=== PATIENT | male | born 1970 | race Caucasian/White ===

== ENCOUNTER 2019-01-23 07:45 | Day surgery (SDC) | payer MEDICAID, SELFPAY ==
[2019-01-23] VITALS (8 sets, daily range): BP systolic 107–142; BP diastolic 67–83; PULSE 60–74; RESP 16–20; TEMP 36.5–36.6; O2SAT 98–100; BMI 46.2
== END 2019-01-23 09:13 | disposition home or self-care (01) ==
LOC: OR 07:47
PROVIDERS: PCP Family Medicine; Visit Provider Ophthalmology
PROC: (CPT 66984; principal; 2019-01-23 08:00)
DX: H26.9 Unspecified cataract (principal)
CPT/HCPCS: 66984; V2632

== ENCOUNTER 2025-01-28 10:59 | Emergency (ER) | payer MEDICAID, SELFPAY ==
--- OUTSIDE RECORDS SUMMARY | 2025-01-08 14:45 | XMS_ITS | Encounter Summary ---
Author Organization [place] [address] Care Team Providers Care Visual Merchandiser Name Role Phone MelissaDaja Teri SANTIAGO Primary Care Provider [phone] Keya Parra LCSW Unavailable Unavailabl e Reason for Referral * MRI/CAT Scan (Routine) - Pending Review Specialty Diagnoses / Procedures Referred By Contac t Referred To Contact Radiology Diagnoses Smoking greater than [address] LUNG CANCER SCREENING LOW DOSE Dieudonne Loyd MD [address] [place] [address] [place] [address] Phone: tel: fax: Referral ID Status Reason Start Date Expiration Date V isits Requested Visits Authorized [id number] Pending Review 01/08/2025 04/10/2026 1 1 Reason for Visit * Reason Comments Depression Hand Pain Burning / tingling i n hands Ingrown Toenail Nasal Congestion Runny nose constantl y Encounter Details Date Type Department Care Team (Late st Contact Info) Description 01/08/2025 2:45 PM EDT Office Visit [facility] [place] [address] [place] [id number] Dieudonne Loyd MD [address] [place] [address] [place] [address] Current moderate episode of major depressive disorder without prior episode (HCC) (Primary Dx); Smoking greater than 20 pack years; Cigarette nicotine dependence with other nicotine-induced disorder Social History Tobacco Use Types Packs/Day Years Used Date Smoking Tobacco: Every Day Cigarettes 0.5 42.1 Started: 12/20/1982 Passive Smoke Exposure: Current Smokeless Tobacco: Never Comments:On Chantix currentl y, down to 0.25 pack/day Alcohol Use Standard Drinks/Week Comments No 0 (1 standard drink = 0.6 oz pur e alcohol) PHQ-2 Answer Date Recorded PHQ-2 Total Score 0 08/16/2023 Sexually Active Control Partners Comments Yes Female Sex and Gender Information Value Date Recorded Sex Assigned at Not on file Legal Sex Male 2:42 AM EDT Gender Identity Not on file Sexual Orientation Not on file 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 on file Not on file Not on file documented as of this encounter Last Filed Vital Signs Vital Sign Reading Time Taken Comments Blood Pressure 142/90 01/08/2025 3:03 PM EDT Pulse 93 01/08/2025 3:03 PM EDT Temperature 36.8 C (98.3 F) 01/08/2025 3:03 PM EDT Respiratory Rate 16 01/08/2025 3:03 PM EDT Oxygen Saturation 99% 01/08/2025 3:03 PM EDT Inhaled Oxygen Concentration - - Weight 49.6 kg (109 lb 6.4 oz) 01/08/2025 3:03 P M EDT Height 167.6 cm (5' 6 ) 01/08/2025 3:03 PM EDT Body Mass Index 17.66 01/08/2025 3:03 PM EDT documented in this encounter Functional Status * Is the person deaf or does he/she have serious difficulty hearing? Answer Date of Assessment Author No 07/05/2018 2:19 PM Alexandra Oh MA * Is the person blind or does he/she have serious difficulty seeing even when wearing glasses? Answer Date of Assessment Author No 07/05/2018 2:19 PM Alexandra Oh MA * Does this person have serious difficulty walking or climbing stairs? Answer Date of Assessment Author No 07/05/2018 2:19 PM Alexandra Oh MA * Does this person have difficulty dressing or bathing? Answer Date of Assessment Author No 07/05/2018 2:19 PM Alexandra Oh MA * Because of a physical, mental or emotional condition, does this person have difficulty doing errands alone such as visiting a doctor's office or shopping? Answer Date of Assessment Author No 07/05/2018 2:19 PM Alexandra Oh MA documented as of this encounter Mental Status * Because of a physical, mental or emotional condition, does this person have serious difficulty concentrating, remembering or making decisions? Answer Entry Date Author No 07/05/2018 2:19 PM Alexandra Oh MA documented in this encounter Ordered Prescriptions Prescription Sig Dispense Quantity Refills Last Filled Start Date End Date varenicline tartrate (CHANTIX) 1 mg Oral TabletIndications: Cigarette nicotine dependence with other nicotine-induced disorder Take 1 Tablet by mouth 2 times daily for 90 days. 60 Tablet 2 01/08/2025 04/08/2025 Varenicline 0.5 mg (11)- 1 mg (42) Oral Tablets, Dose PackIndications:Ci garette nicotine dependence with other nicotine-induced disorder Take 0.5 mg PO daily for 3 days, then 0.5 mg PO BID for 4 days, and then 1 mg PO BID 53 Tablet 01/08/2025 escitalopram oxalate (LEXAPRO) 10 mg Oral TabletIndications: Current moderate episode of major depressive disorder without prior episode (HCC) Take 1 Tablet by mouth daily. 90 Tablet 2 01/08/2025 documented in this encounter Progress Notes * Dieudonne Loyd MD - 01/08/2025 2:45 PM EDT Assessment & Plan 1. Depression. - History of using Seroquel, discontinued due to adverse effects including grogginess and impaired functioning. - Reports anxiety and nervousness, exacerbated by the loss of his brother and mother. - Prescription for Lexapro will be issued to manage both anxiety and depression. - List of local counseling resources will be provided to facilitate therapy sessions; social workerwill be consulted for availability. 2. Smoking cessation. - Expressed desire to quit smoking; previously used Chantix successfully. - Two prescriptions for Chantix will be sent to pharmacy: one for the starter pack and another for the continuing pack. - Discussed the importance of smoking cessation and previous success with Chantix. 3. Lung cancer screening. - Due to smoking history, an annual lung cancer screening CT is recommended. - Order for the CT scan will be placed, and contact information for scheduling the appointment willbe provided. - Emphasized the importance of annual screening based on smoking history. Assessment & Plan Current moderate episode of major depressive disorder without prior episode (HCC) Orders: escitalopram oxalate (LEXAPRO) 10 mg Oral Tablet; Take 1 Tablet by mouth daily. Smoking greater than 20 pack years Orders: CT LUNG CANCER SCREENING LOW DOSE; Future Cigarette nicotine dependence with other nicotine-induced disorder Orders: Varenicline 0.5 mg (11)- 1 mg (42) Oral Tablets, Dose Pack; Take 0.5 mg PO daily for 3 days, then 0.5 mg PO BID for 4 days, and then 1 mg PO BID varenicline tartrate (CHANTIX) 1 mg Oral Tablet; Take 1 Tablet by mouth 2 times daily for 90 days. [place] TOBACCO USE CESSATION INTERMEDIATE 3-10 MINUTES Tobacco Use Cessation Counseling I spent 4 minutes discussing smoking cessation including long-term health risks, symptomatology association, steps to decreasing and eliminating tobacco use. Patient agreed to start chantix today to aid in smoking cessation. Follow up cessation at next visit No follow-ups on file. Subjective Alli Mayer is a 54 y.o. male Chief Complaint Patient presents with Depression Hand Pain Burning / tingling in hands Ingrown Toenail Nasal Congestion Runny nose constantly History of Present Illness The patient is a 54-year-old male who presents today for evaluation of depression and smoking cessation. He reports experiencing symptoms of both anxiety and depression, which have been exacerbated by therecent loss of his brother a few years ago. Additionally, he mentions the passing of his mother approximately ten years ago, which has contributed to his emotional distress. He has not previously engaged in any form of counseling but expresses interest in doing so. He has consulted with a counselorat this facility, who unfortunately does not have an available appointment until 01/29/2025. He hasno history of using other antidepressants such as Zoloft, Lexapro, or Effexor. He was previously prescribed Seroquel, initially at a dosage of 50 mg for 2 to 3 doses, which was subsequently increasedto 100 mg. However, he discontinued the medication due to its sedative effects, which resulted in him being late for work on three occasions within a week. He is currently seeking assistance to quit smoking. He has previously used Chantix, which was effective in helping him quit smoking, but he has since experienced a recurrence of drug use and is now committed to achieving long-term cessation. SOCIAL HISTORY The patient admits to smoking. Review of Systems Constitutional: Negative for activity change, chills, fatigue and fever. Psychiatric/Behavioral: Positive for decreased concentration and dysphoric mood. The patient is nervous/anxious. Objective Blood pressure (!) 142/90, pulse 93, temperature 98.3 ??F (36.8 ??C), temperature source Tympanic, resp. rate 16, height 5' 6 (1.676 m), weight 109 lb 6.4 oz (49.6 kg), SpO2 99%. Body mass index is 17.66 kg/m??. Physical Exam Physical Exam Vitals reviewed. Constitutional: General: He is not in acute distress. Appearance: He is well-developed. He is not diaphoretic. HENT: Head: Normocephalic and atraumatic. Eyes: Pupils: Pupils are equal, round, and reactive to light. Cardiovascular: Rate and Rhythm: Normal rate and regular rhythm. Pulmonary: Effort: Pulmonary effort is normal. Breath sounds: Normal breath sounds. No wheezing. Skin: Findings: No rash. Neurological: Mental Status: He is alert and oriented to person, place, and time. Psychiatric: Attention and Perception: Attention normal. Mood and Affect: Mood is anxious. Affect is flat and tearful. Behavior: Behavior normal. Thought Content: Thought content normal. Judgment: Judgment normal. Judgment is not impulsive. Results The provider educated the patient (or legal enrollment representative) on the use of the ambient listening artificial intelligence tool, emoquo. They were informed that this AI tool processes the conversation to generate a clinical note with the expected benefit of improved accuracy while achieving an improved encounter experience for the patient and provider.?The provider explained that the medical information captured by the AI tool including, but not limited to, diagnoses and treatment plan would be protected in accordance with applicable privacy laws and that all diagnoses and treatment decisions would be made by the provider. The provider explained that the note generated will be reviewed bythe provider for accuracy to minimize potential errors.? The patient was given an opportunity to ask questions and opt out of proceeding with the use of the AI tool. After being informed of such information, the patient (or legal enrollment representative), and each individual in attendance with the patient, verbally consented to the use of the AI tool. documented in this encounter Miscellaneous Notes * Patient Instructions - Dieudonne Loyd MD - 01/08/2025 2:45 PM EDT Mental Health and Counseling: The following organizations provide Mental Health Services. If focused on one population, specifiedbelow: [facility] [place] (counseling for all ages, accepts Medicare): -[address], [place], [place] David [facility] Illness [facility] (Counseling): - [address], [place], [place] [facility] (Children???s counseling): - [address] [facility] [address], [place] [address] documented in this encounter Plan of Treatment Scheduled Orders Name Type Priority Associated Diagnoses Orde r Schedule CT LUNG CANCER SCREENING LOW DOSE Imaging Routine Smoking greater than 20 pack years 1 Occurrences starting 01/08/2025 until 04/10/2026 WA TOBACCO USE CESSATION INTERMEDIATE 3-10 MINUTES WA Charge Routine Cigarette nicotine dependence with other nicotine-induced disorder Ordered: 01/08/2025 documented as of this encounter Goals Goal Patient Goal Type Associated Problems Recent Progress Patient-Stated? Author Maintain a healthy diet, exercise regularly and maintain an ideal body weight General No Charleen Riley RMA Stay Tobacco Free Lifestyle No Charleen Riley RMA documented as of this encounter Visit Diagnoses Diagnosis Current moderate episode of major depressive disorder without prior episode (HCC)- Primary Smoking greater than 20 pack years Tobacco use disorder Cigarette nicotine dependence with other nicotine-induced disorder documented in this encounter Discontinued Medications Medication Sig Discontinue Reason Start Date End Da te QUEtiapine XR (SEROQUEL) 50 mg Oral Tablet Sustained Release 24 hrIndications:Modera te episode of recurrent major depressive disorder (HCC) TAKE 1 TAB BY MOUTH NIGHTLY FOR 3 DAYS THEN TAKE 2TABS NIGHTLY FOR 27DAYS.MUST BE TAKEN 3-4HOURS BEFORE BEDTIME Cancelled by 05/03/2024 01/08/2025 Varenicline 0.5 mg (11)- 1 mg (42) Oral Tablets, Dose PackIndications:Pers onal history of nicotine dependence TAKE DIRECTED PER PACKAGE INSTRUCTIONS DELETE- Entered in Error 09/20/2023 01/08/2025 documented as of this encounter Care Teams Visual Merchandiser Relationship Specialty Start Date End Date Daja Torres [place] [address] PCP - General Family Medicine 10/24/23 Keya Parra LCSW [facility] [employer] 01/08/25 documented as of this encounter
--- NOTE | 2025-01-28 11:15 | ED_ITS ---
<Statement entered by Randy Díaz MD - 01/28/25 15:35> I was consulted by the KARLA, and we discussed the complexity of the problems being addressed. I approved the treatment and management plan for this patient's care in the emergency department, thus performing a substantive portion of the medical decision making. Randy Díaz MD Discharge Plan Disposition Patient Disposition: Home, Self-Care Condition: Good Prescriptions Prescriptions: New methocarbamol 750 mg tablet 750 mg PO Q6H PRN (Reason: muscle spasm) Qty: 20 0RF lidocaine 5 % adhesive patch,medicated 1 patch topical DAILY Qty: 30 0RF Rx Instructions: leave on most painful area for up to 12 hrs No Action cilostazol 100 MG tablet 100 mg PO DAILY aspirin 81 MG tablet,delayed release (DR/EC) 81 mg PO DAILY rosuvastatin 20 MG tablet 20 mg PO DAILY varenicline tartrate 1 MG tablet 1 mg PO DAILY rivaroxaban 2.5 MG tablet 2.5 mg PO DAILY Referrals Follow up/Referrals: Provider,Referral, [Primary Care Provider, Medical] - See instructions Activity Restrictions/Add. Instructions Additional Instructions/Restrictions: As we discussed your workup today was negative for any pneumothorax or pneumonia. I have sent in meloxicam and a Lidoderm patch to your pharmacy as it helps with your back pain. If you have persistent new or worsening signs or symptoms follow-up with your PCP return to the ER as needed. Clinical Impressions Clinical Impression: Acute thoracic back pain Qualifiers: Back pain laterality: left Qualified Code(s): M54.6 - Pain in thoracic spine Print Language Print Language: Samoan Discharge ED Provider: Randy Díaz General Adult HPI General Chief complaint: PAIN Stated complaint: lower back pain cough Time Seen by Provider: 01/28/25 11:14 History of Present Illness HPI narrative: Patient presents for left-sided thoracic back pain. Patient states symptoms began 3 days ago and has gotten progressively worse. Patient also reports a cough however that is not new and does not make his back pain worse. There is no position of comfort there is no aggravating or relieving factors he denies any trauma or injury. He does have a history of pneumonia which is why he came to the emergency department as he was concerned that this is what it was as it felt similar to previous ones. He denies any fever shortness of breath hemoptysis hematochezia melena hematemesis hematuria. Related Data Home Medications ?Medication ?Instructions ?Recorded ?Confirmed aspirin 81 mg tablet,delayed 81 mg PO DAILY thinner 01/23/19 release cilostazol 100 mg tablet 100 mg PO DAILY blood clots 01/23/19 01/23/19 rivaroxaban 2.5 mg tablet 2.5 mg PO DAILY thinner 01/1301/23/19 rosuvastatin 20 mg tablet 20 mg PO DAILY Cholesterol 0 01/23/19 01/23/19 varenicline tartrate 1 mg tablet 1 mg PO DAILY smoking sessitation 01/23/19 01/23/19 Previous Rx's ?Medication ?Instructions ?Recorded lidocaine 5 % topical patch 1 patch topical DAILY #30 ea 01/28/25 methocarbamol 750 mg tablet 750 mg PO Q6H PRN muscle s pasm #20 01/28/25 tabs Allergies Allergy/AdvReac Type Severity Reaction Status Date / Time No Known Allergies Allergy Verified 01/23/19 07:56 [facility] Disclaimer: The information contained in this section may have been updated after the patient was seen, as this information can be updated by other users. Social History Smoking Status: Current every day smoker alcohol intake: never current occupational status: employed Travel in the last 8 weeks?: None caffeine: No ROS Obtained: Yes Systems reviewed as appropriate & no additional complaints except as documented Physical Exam General General appearance: alert and in no apparent distress Respiratory Respiratory exam: Present normal lung sounds bilaterally Cardiovascular Cardiovascular exam: Present regular rate Neurological Exam Neurological exam: Present alert and oriented X3 Medical Decision Making Medical Records Medical records reviewed: Yes I reviewed the patient's medical records. Screening: Per USPSTF and CDC recommendations, given the prevalence of disease in our region, it is our hospital?s policy to screen for HIV and viral Hepatitis for all patients aged 18 and over and those with ongoing risk factors. Lester Inquiry Pt receiving controlled substance: No Vital Signs: 01/28/25 11:17 01/28/25 11:30 01/28/25 12:00 Temperature 97.8 F Temperature Source Oral Pulse Rate 65 75 Pulse Rate [Right] 82 Respiratory Rate 17 Blood Pressure 159/97 H 115/67 Blood Pressure [Right Arm] 146/92 H Blood Pressure Mean 108 Blood Pressure Mean [Right Arm] 110 Blood Pressure Source [Right Arm] Automatic Cuff Blood Pressure Position [Right Arm] Supine 02 Sat by Pulse Oximetry 100 100 100 Oxygen Delivery Method Room Air Lab Data Lab results reviewed: Yes I reviewed the patient's lab results. Lab Results 01/28/25 11:32: WBC 8.5, RBC 4.47 L, Hgb 14.6, Hct 42.2, MCV 94.4 H, MCH 32.7 H, MCHC 34.6, RDW 12.1, Plt Count 343, MPV 9.0, Neut % (Auto) 67.3, Lymph % (Auto) 19.8, Beckham % (Auto) 10.9 H, Eos % (Auto) 1.1, Baso % (Auto) 0.5, Neut # (Auto) 5.7, Lymph # (Auto) 1.7, Beckham # (Auto) 0.9, Eos # (Auto) 0.1, Baso # (Auto) 0.0, PT 11.9, INR 1.08, Sodium 135 L, Potassium 4.6, Chloride 101, Carbon Dioxide 33 H, Anion Gap 5.6, BUN 23 H, Creatinine 0.90, Estimated Creat Clear 72, Estimated GFR 87, Est GFR ( Amer) 106, Glucose 81, Calcium 9.2, Total Bilirubin 0.2, AST 32, ALT 22, Alkaline Phosphatase 112, Total Protein 7.2, Albumin 4.3, Globulin 2.9, Albumin/Globulin Ratio 1.5, Procalcitonin 0.057 01/28/25 11:32 01/28/25 11:32 Orders (Tests/Meds): ED MEDICATIONS Discontinued Medications Generic Name Dose Route Start Last Admin Trade Name Elena PRN Reason Stop Dose Admin Acetaminophen 1,000 mg 01/28/25 11:19 01/28/25 11:48 Acetaminophen 500mg Tab PO 01/28/25 11:20 1,000 mg ONCE ONE Administration Sodium Chloride 1,000 mls @ 999 mls/hr 01/28/25 11:19 01/28/25 11:48 Sod Chlor 0.9% 1000ml Bag IV 01/28/25 12:19 999 mls/hr .Q1H1M ONE Administration Iopamidol 70 ml 01/28/25 11:39 01/28/25 11:41 Iopamidol-370 (76%);100ml Bottle IV 01/28/25 11:40 70 ml ONCE ONE Administration Ketorolac Tromethamine 15 mg 01/28/25 11:19 01/28/25 11:47 Ketorolac 30mg/Ml Vial IV 01/28/25 11:20 15 mg ONCE ONE Administration Lidocaine 1 each 01/28/25 11:19 01/28/25 11:47 Lidocaine 5% Transdermal Patch TD 01/28/25 11:20 1 each ONCE ONE Administration Methocarbamol 500 mg 01/28/25 11:19 01/28/25 11:48 Methocarbamol 500mg Tablet PO 01/28/25 11:20 500 mg ONCE ONE Administration Sodium Chloride 50 ml 01/28/25 11:39 01/28/25 11:40 0.9 % Sodium Chloride 50 Ml Vial IV 01/28/25 11:40 50 ml ONCE ONE Administration Sodium Chloride 10 ml 01/28/25 11:39 01/28/25 11:41 Sodium Chloride 0.9% 10ml Syr (Rad Only) IV 01/28/25 11:40 10 ml ONCE ONE Administration ORDERS Category Date Time Status CT angio chest PE protocol Stat Cat Scan 01/28/25 11:19 Completed CBC w/Auto Diff [Complete Blood Count Auto Diff] Stat Lab 01/28/25 11:32 Completed CMP [Comprehensive Metabolic Panel] Stat Lab 01/28/25 11:32 Completed HIV Combo Stat Lab 01/28/25 11:32 Received Hepatitis C Ab Qual. W/ RFX Stat Lab 01/28/25 11:32 Received INR [Prothrombin Time INR] Stat Lab 01/28/25 11:32 Completed Procalcitonin Stat Lab 01/28/25 11:32 Completed Medical Decision Narrative: In summary patient is a 84-year-old male who presents to the emergency department for evaluation of left thoracic back pain. Patient is hemodynamically stable with normal sinus rhythm with a rate of 82 on the bedside monitor breathing 17 times minute satting 100% on room air upon arrival, afebrile at 97.8. Physical exam is remarkable for clear breath sounds with no adventitious sounds or increased breathing, no anterior chest wall tenderness to palpation, patient has no midline spine tenderness however he has point tender in the left mid thoracic back just inferior to the scapula without evidence of contusions abrasions deformities.. Differential diagnosis includes muscle spasm versus rib fracture versus pneumonia versus pneumothorax etc. Initial workup will be conducted with hematologic labs CT PE protocol. Initial interventions include Tylenol Toradol meloxicam and Lidoderm patch. 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 Please see final read for formal interpretation.. Upon repeat evaluation patient had complete resolution of his back pain after initial intervention. Given this patient is appropriate for discharge with prescription for meloxicam and Robaxin and strict return precautions. Critical Care Critical Care Time Critical Care Time: No
[2025-01-28 11:17] VITALS: BP 146/92; PULSE 82; RESP 17; TEMP 36.6; O2SAT 100; BMI 19.7
--- NOTE | 2025-01-28 11:19 | CT_ITS ---
FINAL REPORT TECHNIQUE: The patient was injected with IV contrast. Axial images were obtained through the chest in a PE protocol. 3-D reconstruction images were also performed. Individualized dose reduction techniques using automated exposure control or adjustment of the MA and/or KV according to patient's size were employed. CLINICAL HISTORY: Acute thoracic back pain COMPARISON: none FINDINGS: Mediastinal vasculature is adequately opacified. No pulmonary artery filling defects are identified to suggest PE. There is no aortic dissection. There is no significant mediastinal mass or adenopathy. The heart size is normal. There is no pericardial or pleural effusion. Limited images of the upper abdomen are unremarkable. Biapical bulla formation is noted. There is a linear opacity in the right lung apex favored to represent parenchymal scarring, well seen on image 28 of series 5. IMPRESSION: No pulmonary embolus or dissection. Bulla formation. Scarring at the right lung apex. Reviewed, Interpreted and Dictated by Bob Woodall MD Transcribed by Rosmery Barton Authenticated and [facility]
--- OUTSIDE RECORDS SUMMARY | 2025-01-28 11:20 | XMS_ITS | Encounter Summary ---
Author Organization [place] [address] Care Team Providers Care Performance Reporter Name Role Phone Daja Torres DO Primary Care Provider [phone] Keya Parra LCSW Unavailable Unavailabl e Reason for Visit * Reason Onset Date Comments Appointment Needed 01/08/2025 Appt requeste d ZOË solares/ Keya Parra for counseling. Please call to sched Encounter Details Date Type Department Care Team (Late st Contact Info) Description 01/08/2025 Telephone [facility] [address] [place] [address] Daja Torres, [address] [place] [phone] Appointment Needed (Appt requested ZOË solares/ Keya Parra for counseling. Please call to sched) Social History Tobacco Use Types Packs/Day Years [...] on file documented as of this encounter Functional Status * Is the [...] Alexandra Oh MA documented in this encounter Miscellaneous Notes * Telephone Encounter - Sarah Garcia - 01/08/2025 10:07 AM EDT Select the most appropriate reason for this telephone message: Appointment Needed Appointment Requested By: Patient Provider Preference: Abdi Parra Type of Appt Needed: Office Visit Detailed Reason for Appt: Pt asking to set up appt with Keya- asking to do this ZOË Requested Timeframe: Today/ tomorrow Reason Scheduling Assistance is Needed: Call Center not permitted to schedule Return Method of Communication: Phone Call Additional Information: Pt asking to have an appt scheduled with a counselor ZOË- didn't want to specify reason for appt. - Call center did attempt to transfer call, but unable to connect with office. Sending message HP since pt was very upset documented in this encounter Plan of Treatment Not on file documented as of this encounter Goals Goal Patient Goal Type Associated Problems Recent Progress Patient-Stated? Author Maintain a healthy diet, exercise regularly and maintain an ideal body weight General No Charleen Riley RMA Stay Tobacco Free Lifestyle No Charleen Riley RMA documented as of this encounter Visit Diagnoses Not on filedocumented in this encounter Care Teams Performance Reporter Relationship Specialty Start Date End Date Daja Torres DO [address] [place] [id number] PCP - General Family Medicine 10/24/23 Keya Parra LCSW Security Delivery Specialist 01/08/25 documented as of this encounter
--- OUTSIDE RECORDS SUMMARY | 2025-01-28 11:20 | XMS_ITS | Encounter Summary ---
Author Organization [place] [address] Care Team Providers Care Licensed Pesticide Applicator Name Role Phone Daja Torres Primary Care Provider + [phone] Keya Parra LCSW Unavailable Unavailabl e Reason for Visit * Reason Comments CM- In office handoff Encounter Details Date Type Department Care Team (Late st Contact Info) Description 01/08/2025 Patient Outreach [facility] [address] [place] [address] Keya Parra LCSW CM- In office handoff Social History Tobacco Use Types Packs/Day Years [...] Alexandra Oh MA documented in this encounter Progress Notes * Keya Parra LCSW - 01/08/2025 3:20 PM EDT PEDIATRIC DERMATOLOGIST met with patient while in office this date for warm hand off from Dieudonne Loyd. PEDIATRIC DERMATOLOGIST introduced social welfare research worker program. Patient was provided with contact information. Patient was provided with resources regarding community therapist. Patient will contact PEDIATRIC DERMATOLOGIST if further assistance is needed. If no contact is made within one month, PEDIATRIC DERMATOLOGIST will close patient referral due to no contact. Length of Encounter: 10 - 15 minutes documented in this encounter Plan of Treatment [...] on filedocumented in this encounter Care Teams Licensed Pesticide Applicator Relationship Specialty Start Date End Date Daja Torres DO [address] [place] [address] PCP - General Family Medicine 10/24/23 Keya Parra LCSW Heat Curer 01/08/25 documented as of this encounter
--- OUTSIDE RECORDS SUMMARY | 2025-01-28 11:20 | XMS_ITS | Encounter Summary ---
Author Organization [place] [address] Care Team Providers Care Rn Clinical Resource Name Role Phone Daja Torres Primary Care Provider [phone] Reason for Visit * Reason Comments Medication Refill Encounter Details Date Type Department Care Team (Late st Contact Info) Description 11/21/2024 Refill [facility] [address] [place] [address] Nimisha Coulter MD Medication Refill Social History Tobacco Use Types Packs/Day Years [...] encounter Miscellaneous Notes * Telephone Encounter - Danita Villeda CPhT - 11/21/2024 3:11 PM EDT rosuvastatin - Refill request deferred to the office: Medication discontinued or inactive on the medication list documented in this encounter Plan of Treatment Not on file documented as of this encounter Goals Goal Patient Goal Type Associated Problems Recent Progress Patient-Stated? 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
--- OUTSIDE RECORDS SUMMARY | 2025-01-28 11:20 | XMS_ITS | Clinical Summary ---
Author Organization [facility] Address [address] [facility] [place] [address] Phone Care Team Providers Care Nurse Companion Name Role Phone Daja Torres Primary Care Provider + [phone] Keya Parra REBAR WORKER Unavailable Unavailabl e Allergies No known active allergies Medications montelukast (SINGULAIR) 10 mg Oral TabletIndication s:Eustachian tube dysfunction, bilateral Take 1 Tablet by mouth nightly for 360 days. 90 Tablet 3 4 02/02/20 25 Active Additional Information Patient not taking.Reported on 01/08/2025 XARELTO 20 mg Oral TabletIndication s:Atherosclerosi s of s[place]qual[place] artery of both lower extremities with intermittent claudication,PAD (peripheral artery disease),Coronar y artery disease involving [place] coronary artery of [place]qualmie heart with angina pectoris,PFO (patent foramen ovale),Chronic anticoagulation, History of embolism TAKE 1 TABLET BY MOUTH EVERY DAY 30 Tablet 5 Active Additional Information Patient not taking.Reported on 01/08/2025 escitalopram oxalate (LEXAPRO) 10 mg Oral TabletIndication s:Current moderate episode of major depressive disorder without prior episode (HCC) Take 1 Tablet by mouth daily. 90 Tablet 2 5 Active Varenicline 0.5 mg (11)- 1 mg (42) Oral Tablets, Dose PackIndications: Cigarette nicotine dependence with other nicotine-induced disorder Take 0.5 mg PO daily for 3 days, then 0.5 mg PO BID for 4 days, and then 1 mg PO BID 53 Tablet 5 Active varenicline tartrate (CHANTIX) 1 mg Oral TabletIndication s:Cigarette nicotine dependence with other nicotine-induced disorder Take 1 Tablet by mouth 2 times daily for 90 days. 60 Tablet 2 5 04/08/20 25 Active Active Problems Patient Care Coordination No te Formatting of this note migh t be different from the original. Needs prior authorization for xarelto every May Problem Noted Date Diagnosed Date PFO (patent foramen ovale) 08/16/2023 Assessment & Plan (08/16/2023 12:42 PM EST): No intervention. On xarelto. Had bubble echo 01/14/16 Chronic anticoagulation 08/16/2023 Coronary artery disease invo lving snoqualmie coronary artery of snoqualmie heart with angina pectoris 08/16/2023 Assessment & Plan (08/16/2023 12:40 PM EST): On xarelto. Was on statin but got confused on whether he was supposed to be taking or not. Will restart with crestor Hasn't seen cardiology since 2018 - recommend follow up Vitamin D deficiency 08/16/2023 Moderate episode of recurrent major depressive d isorder 08/16/2023 Assessment & Plan (08/16/2023 12:44 PM EST): Doesn't feel like prozac is helping depression. Seems to calm him down too much. Not sleeping well. No SI/HI/AVH. Will start seroquel. Pt is blaming weight loss on grief and depression since he just isn't interested in eating although his appetite is good when he does eat. Abdominal aortic atherosclerosis 08/16/2023 Overview (08/16/2023): No aneurysm 2015 Assessment & Plan (08/16/2023 12:46 PM EST): Asymptomatic at this time. On xarelto. BP is good. Restart statin. Discussed diet and exercise. Cachexia 08/16/2023 Assessment & Plan (08/16/2023 12:54 PM EST): Pt blames on depression. But also has CAD, PAD,and is a smoker. No pulmonary symptoms but is due for lung screen. Follow up in 1 month. Has history of glucose intolerance so will also check for diabetes and hyperthyroidism. HPV (human papilloma virus) anogenital infection 10/19/2017 Mixed hyperlipidemia 12/30/2016 Assessment & Plan (08/16/2023 12:41 PM EST): On xarelto. Was on statin but got confused on whether he was supposed to be taking or not. Will restart with crestor. Discussed diet since he is eating a lot of red meat. Seasonal allergic rhinitis 12/30/2016 Right to left cardiac shunt 10/11/2016 COPD (chronic obstructive pulmonary disease) 03/2016 Assessment & Plan (08/16/2023 12:38 PM EST): Currently stable. Recommend smoking cessation. Would like to restart chantix Atherosclerosis of snoqualmie ar ilda of extremity with intermittent claudication 02/03/2016 Assessment & Plan (08/16/2023 12:39 PM EST): Stable. On xarelto. Was on statin but got confused on whether he was supposed to be taking or not. Will restart with crestor PAD (peripheral artery disease) 01/27/2016 Assessment & Plan (08/16/2023 12:39 PM EST): No open wounds today on legs. On xarelto. Was on statin but got confused on whether he was supposed to be taking or not. 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 Continue exercises. Glucose intolerance (impaire d glucose tolerance) 11/30/2016 11/19/2023 Tobacco dependence 06/27/2016 Loculated empyema 04/02/2016 08/16/2023 Empyema lung 03/30/2016 08/16/2023 Mediastinal adenopathy 03/30/201608/16 Pneumonia of right lower lob e due to infectious organism 03/17/2016 08/16/2023 COPD exacerbation 03/17/2016 11/19/2023 Sepsis due to pneumonia 03/17/201601/2024 Pleural effusion, right 09/2023 Encounters Date Type Department Care Team Description 01/08/2025 2:45 PM EDT Office Visit [address] [place] [address] Dieudonne Loyd MD Current moderate episode of major depressive disorder without prior episode (HCC) (Primary Dx); Smoking greater than 20 pack years; Cigarette nicotine dependence with other nicotine-induced disorder 01/08/2025 Patient Outreach [address] [place] [address] Keya Parra LCSW CM- In office handoff 01/08/2025 Patient Outreach [address] [place] [address] Keya Parra LCSW SW- Telephonic Outreach; CM- Telephonic Outreach 01/08/[address] [place] [address] Daja Torres, DO Appointment Needed (Appt requested ZOË w/ Keya Parra for counseling. Please call to sched) 12/27/[address] [place] [address] Daja Torres, DO Medication Refill 11/21/[address] [place] [address] Nimisha Coulter MD Medication Refill 11/21/[address] [place] [address] Daja Torres, DO Medication Refill from Last 3 Months Immunizations Immunization Administration Dates Next Due Influenza Vaccine Quadrivalent PF 08/16/2023 Tdap 05/08/2010 Surgical History Surgery Date Site/Laterality Comments THROMBECTOMY 01/13/2016 - 01/14/2016 Left embolectomy left popliteal, balloon angioplasty left poplietal, diagnostic arteriography left leg, recantilization of right common and external illiac arteries with snare technique. 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 Arthritis feet Clotting disorder s/p thrombecto my left leg Pleural effusion, right Mediastinal adenopathy 03/30/2016 Loculated empyema (HCC) 04/02/2016 Sepsis due to pneumonia (HCC) 03/17/2016 Family History Medical History Relation Name Comments Aneurysm Brother Coronary Art Dis Brother Cancer Father Heart Attack Mother Anesth Problems Neg Hx Relation Name Status Comments Brother Father Mother Social History Tobacco Use Types Packs/Day Years Used Date Smoking Tobacco: Every Day Cigarettes 0.5 42.1 Started: 12/20/1982 Passive Smoke Exposure: Current Smokeless Tobacco: Never Tobacco Cessation:Ready to Q uit: No; Counseling Given: No Comments:On Chantix currently, down to 0.25 pack/day Alcohol Use Standard [...] file Not on file Not on file Obstetrics History Last Filed Vital Signs Vital Sign Reading [...] Mass Index 17.66 01/08/2025 3:03 PM EDT Plan of Treatment Health Maintenance Due Date Last Done Comments Hepatitis B Vaccine (1 of 3 - 19+ 3-dose series) 02/23/1987 Pneumococcal Vaccine 50+ (1 of 2 - PCV) 02/23/1987 Cologuard 02/23/2013 Colon Cancer Screening 02/23/2013 Colonoscopy 02/23/2013 FIT 02/23/2013 Sigmoidoscopy 02/23/2013 Virtual Colonography 02/23/2013 Zoster (1 of 2) 02/23/2018 Low Dose Lung Cancer Screening 07/05/2019 07/05/2018, 06/07/2016, 04/01/2016, Additional history exists DTaP/TDaP/Td (2 - Td or Tdap) 05/08/2020 05/08/2010 COVID-19 Vaccine ( season) 2024 Annual Wellness Exam 08/16/2024 08/16/2023 Influenza Vaccine (Season Ended) 2025 08/16/2023, 06/14/2017 (Postponed), 04/22/2016 (Declined) Meningococcal B Vaccine Aged Out No l onger eligible based on patient's age to complete this topic Goals Goal Patient Goal Type Associated Problems Recent Progress Patient-Stated? Author Maintain a healthy diet, exercise regularly and maintain an ideal body weight General No Charleen Riley RMA Stay Tobacco Free Lifestyle No Charleen Riley RMA Medical Devices Implanted Type Area Distribution Sales Manager Device Identifier Shelf Expiration Date Model / Serial / Lot Stent Epic Vascular 6fr 8 X 80 X 75-09/17/2016 Implanted:Qty: 1 on 09/17/2016 by Avelino Vargas MD Arterial [employer] [id number] / / [id number] Procedures Procedure Name Priority Date/Time Associated Diagnosis Comments CT CHEST W CONTRAST STAT 07/05/2018 6 :39 PM EST TOBIN (dyspnea on exertion) Tobacco use Weight loss from Last 3 Months or Most Recently Relevant to Health Maintenance Results * CT CHEST W CONTRAST (07/05/2018 6:39 PM EST) Anatomical Region Laterality Modality Chest Computed Tomogra phy 07/05/2018 6:39 PM EST Impressions 07/05/2018 6:53 PM EST No acute intrathoracic process. Diffuse scattered emphysematous lung changes. Narrative 07/05/2018 6:[address] CHEST WITH CONTRAST, 07/05/2018 6:39 PM CLINICAL HISTORY: R06.09-Other forms of dciwvnw-HWM-04-CM Z72.0-Tobacco uvk-LMY-81-CM R63.4-Abnormal weight gkkg-CPF-46-CM COMPARISON: Prior comparison noncontrast chest CT study, 06/07/2016. PROCEDURE COMMENTS: Multi detector volumetric CT scanning of the chest. Multiplanar reconstructions per protocol. 75 mL Isovue 370 given. Automated exposure control for dose reduction was used. CTDIvol: 3.9 mGy. DLP: 145 mGy-cm. FINDINGS: Normal caliber of the thoracic aorta. No visualized cardiac enlargement. No focal intrathoracic lymphadenopathy. The lungs are clear. No dominant lung mass or pleural effusion. Bilateral scattered emphysematous bulla noted with greatest involvement of the right apical region. No visualized pneumothorax. Stable chronic left upper lobe increased subpleural lung markings. The visualized bony chest wall structures are intact. Unremarkable visualized upper abdominal structures. Procedure Note Eulalio Ortiz DO - 07/05/2018 CT CHEST WITH CONTRAST, 07/05/2018 6:39 PM CLINICAL HISTORY: R06.09-Other forms of bmhbrwa-MNY-94-CM Z72.0-Tobacco wkr-EOR-32-CM R63.4-Abnormal weight sffo-FUI-26-CM COMPARISON: Prior comparison noncontrast chest CT study, 06/07/2016. PROCEDURE COMMENTS: Multi detector volumetric CT scanning of the chest. Multiplanar reconstructions per protocol. 75 mL Isovue 370 given.Automated exposure control for dose reduction was used. CTDIvol: 3.9 mGy. DLP: 145mGy-cm. FINDINGS: Normal caliber of the thoracic aorta. No visualized cardiac enlargement.No focal intrathoracic lymphadenopathy. The lungs are clear. No dominant lungmass or pleural effusion. Bilateral scattered emphysematous bulla noted withgreatest involvement of the right apical region. No visualized pneumothorax.Stable chronic left upper lobe increased subpleural lung markings. The visualizedbony chest wall structures are intact. Unremarkable visualized upperabdominal structures. IMPRESSION: No acute intrathoracic process. Diffuse scattered emphysematous lung changes. us Nimisha Tan MD IM CT ORDERABLES F inal Result from Last 3 Months or Most Recently Relevant to Health Maintenance Insurance PLAN BY [employer] Advance Directives For more information, please contact: [phone] * Full Code (Latest Code Status on File) Date Activated Date Inactivated Comments 03/18/2016 12:40 PM 04/05/2016 7:45 PM * Full Code Date Activated Date Inactivated Comments 01/15/2016 4:17 PM 01/16/2016 8:30 PM Care Teams Nurse Companion Relationship Specialty Start Date End Date Daja Torres DO [address] [place] [address] PCP - General Family Medicine 10/24/23 Keya Parra LCSW Hogshead Wrecker 01/08/25
--- OUTSIDE RECORDS SUMMARY | 2025-01-28 11:20 | XMS_ITS | Encounter Summary ---
Author Organization [address] [address] Care Team Providers Care Interior Wall Assembler Name Role Phone Daja Torres DO Primary Care Provider [phone] Reason for Visit * Reason Comments Medication Refill Encounter Details Date Type Department Care Team (Late st Contact Info) Description 12/27/2024 Refill [facility] [address] [place] [address] Daja Torres DO [address] [place] [address] Medication Refill Social History Tobacco Use Types [...] Refills Last Filled Start Date End Date XARELTO 20 mg Oral TabletIndications:A therosclerosis of nikolai artery of both lower extremities with intermittent claudication,PAD (peripheral artery disease),Coronary artery disease involving nikolai coronary artery of nikolai heart with angina pectoris,PFO (patent foramen ovale),Chronic anticoagulation,His tory of embolism TAKE 1 TABLET BY MOUTH EVERY DAY 30 Tablet 12/28/2024 documented in this encounter Plan of Treatment Not on file documented as of this encounter Goals Goal Patient Goal Type Associated Problems Recent Progress Patient-Stated? Author Maintain a healthy diet, exercise regularly and maintain an ideal body weight General No Charleen Riley RMA Stay Tobacco Free Lifestyle No Charleen Riley RMA documented as of this encounter Visit Diagnoses Diagnosis Atherosclerosis of nikolai artery of both lower extremities with intermittent claudication Atherosclerosis of nikolai arteries of the extremities with intermittent claudication PAD (peripheral artery disease) Unspecified disorders of arteries and arterioles Coronary artery disease involving nikolai coronary artery of nikolai heart with angina pectoris PFO (patent foramen ovale) Ostium secundum type atrial septal defect Chronic anticoagulation Encounter for long-term (current) use of anticoagulants History of paradoxical embolism documented in this encounter Discontinued Medications Medication Sig Discontinue Reason Start Date End Da te rivaroxaban (XARELTO) 20 mg Oral TabletIndications:Atheros clerosis of nikolai artery of both lower extremities with intermittent claudication,PAD (peripheral artery disease),Coronary artery disease involving nikolai coronary artery of nikolai heart with angina pectoris,PFO (patent foramen ovale),Chronic anticoagulation,History of embolism TAKE 1 TABLET BY MOUTH EVERY DAY 11/21/2024 12/28/2024 documented as of this encounter Care Teams Interior Wall Assembler Relationship Specialty Start Date End [place] [place] [address] PCP - General Family Medicine 10/24/23 documented as of this encounter
--- OUTSIDE RECORDS SUMMARY | 2025-01-28 11:20 | XMS_ITS | Encounter Summary ---
Author Organization [place] [address] Care Team Providers Care Manager Business Continuity Name Role Phone Daja Torres Primary Care Provider + [phone] Keya Parra LCSW Unavailable Unavailabl e Reason for Visit * Reason Comments SW- Telephonic Outreach CM- Telephonic Outreach Encounter Details Date Type Department Care Team (Late Contact Info) Description 01/08/2025 Patient Outreach [facility] [address] [place] [address] Keya Parra LCSW SW- Telephonic Outreach; CM- Telephonic Outreach Social History Tobacco Use Types Packs/Day Years [...] Notes * Keya Parra LCSW - 01/08/2025 10:40 AM EDT SUKHWINDER received message from call center with patient request for appointment. Patient has appointment this afternoon with primary care provider and SUKHWINDER will provide resources to patient and schedule appointment after exploring options. SUKHWINDER will follow up with patient at in person appointment today. documented in this encounter Plan of Treatment [...] on filedocumented in this encounter Care Teams Manager Business Continuity Relationship Specialty Start Date End Date Daja Torres DO [address] [place] [address] PCP - General Family Medicine 10/24/23 Keya Parra LCSW Mask Inspector 01/08/25 documented as of this encounter
[2025-01-28 11:30] VITALS: BP 159/97; PULSE 65; O2SAT 100
[2025-01-28] MEDS: 0.9 % SODIUM CHLORIDE 50 ML VIAL IV (11:40)
[2025-01-28 11:41] LABS: Basophils % 0.5 % (0.1-2.0); Eosinophils # 0.1 Kmm3 (0.0-0.4); Eosinophils % 1.1 % (0.1-12.0); Hematocrit 42.2 % (42.0-52.0); Hemoglobin 14.6 g/dL (14.1-18.0); Immature Granulocytes # 0.03 10^3uL; Immature Granulocytes % 0.4 %; Lymphocytes # 1.7 K/mm3 (0.7-4.5); Lymphocytes % 19.8 % (10-50); Mean Corpuscular HGB Conc 34.6 g/dL (31.8-35.4); Mean Corpuscular Hemoglobin 32.7 pg (27.0-31.2); Mean Corpuscular Volume 94.4 fl (80-94); Monocytes # 0.9 K/mm3 (0.1-1.0); Monocytes % 10.9 % (1.7-9.3); Neutrophils # 5.7 K/mm3 (1.8-7.8); Neutrophils % 67.3 % (37.0-80.0); Nucleated Red Blood Cells # 0 10^3/uL; Nucleated Red Blood Cells % 0 %; Platelet Count 343 K/mm3 (142-424); Red Blood Count 4.47 M/mm3 (4.60-6.20); Red Cell Distribution Width 12.1 % (11.5-17.5); Red Cell Distribution Width-SD 42.6 fL; White Blood Count 8.5 K/mm3 (4.8-10.8)
[2025-01-28] MEDS: SODIUM CHLORIDE 0.9% 10ML SYR (RAD ONLY) 10 ML IV (11:41)
[2025-01-28] MEDS: IOPAMIDOL-370 (76%);100ML BOTTLE 70 ML IV (11:41)
[2025-01-28] MEDS: LIDOCAINE 5% TRANSDERMAL PATCH 1 EACH TD (11:47)
[2025-01-28] MEDS: KETOROLAC 30MG/ML VIAL 15 MG IV (11:47)
[2025-01-28] MEDS: METHOCARBAMOL 500MG TABLET 500 MG PO (11:48)
[2025-01-28] MEDS: 0.9 % SODIUM CHLORIDE 1000ML 1,000 ML 999 ML IV (11:48)
[2025-01-28] MEDS: ACETAMINOPHEN 500MG TAB 1000 MG PO (11:48)
[2025-01-28 11:53] LABS: INR 1.08 (0.9-1.1); Prothrombin Time 11.9 seconds (10.1-12.5)
[2025-01-28 11:55] LABS: Albumin Level 4.3 g/dl (3.5-5.0); Chloride 101 mmol/L (98-107); Potassium 4.6 mmoL/L (3.5-5.1); Sodium 135 mmol/L (136-145)
[2025-01-28 11:58] LABS: Alanine Aminotransferase 22 U/L (12-78); Albumin/Globulin Ratio 1.5 (1.1-1.8); Alkaline Phosphatase 112 U/L (38-126); Anion Gap 5.6 mEq/L (5-15); Aspartate Amino Transferase 32 U/L (17-59); Bilirubin,Total 0.2 mg/dl (0.2-1.3); Blood Urea Nitrogen 23 mg/dl (9-20); Calcium 9.2 mg/dl (8.4-10.2); Carbon Dioxide 33 mmol/L (22.0-30.0); Creatinine Clearance Estimated 72 mL/min (50-200); Estimated Glomerular Filt Rate 87 ml/min (>60); GFR (African American) 106 ML/MIN (>60); Globulin 2.9 g/dL (1.3-3.2); Glucose 81 mg/dl (74-100); Total Protein,Serum 7.2 g/dl (6.3-8.2)
[2025-01-28 12:00] VITALS: BP 115/67; PULSE 75; O2SAT 100
[2025-01-28 12:09] LABS: Procalcitonin 0.057 ng/mL (0.0-2.0)
[2025-01-28 12:35] VITALS: BP 127/78; PULSE 67; RESP 18; TEMP 36.3; O2SAT 100
[2025-01-28 12:54] LABS: HIV Combo NEGATIVE (Negative)
[2025-01-28 13:02] LABS: Hepatitis C Ab Qual. W/ RFX NEGATIVE (Negative)
== END 2025-01-28 12:41 | disposition home or self-care (01) ==
PROVIDERS: Physician Assistant; Emergency Provider Emergency Medicine; PCP Family Medicine
DX: M54.6 Pain in thoracic spine (principal); F17.210 Nicotine dependence, cigarettes, uncomplicated; Z11.59 Encounter for screening for other viral diseases; Z11.4 Encounter for screening for human immunodeficiency virus [HIV]
CPT/HCPCS: 71275; 80053; 80074; 84145; 85025; 85610; 87389; 96361; 96374; 99284; J1885; J7030; Q9967